=== PATIENT | female | born 1955 | race Asian ===

== ENCOUNTER 2018-09-15 13:50 | Inpatient (IN) | payer OTHER ==
[~2018-09-15] VITALS: Ht 152.4 cm; Wt 45.6 kg
[2018-09-15] MEDS ORDERED: ACET1TAB55 PO (13:56)
[2018-09-15] MEDS ORDERED: NYQU1CAP PO (13:56)
[2018-09-15 16:15] LABS: BASO % 0.2 % (0.0-1.0); HEMATOCRIT 37.5 % (36.0-47.0); HEMOGLOBIN 12.2 g/dl (12.0-15.5); LYMPH # 2.4 10^3/uL (1.5-4.5); LYMPH % 20.1 % (24.0-44.0); MEAN CORPUSCULAR HEMOGLOBIN 29.5 pg (27.0-33.0); MEAN CORPUSCULAR HGB CONC 32.5 g/dl (32.0-36.5); MEAN CORPUSCULAR VOLUME 90.8 fl (80.0-96.0); MONO # 0.8 10^3/uL (0.0-0.8); MONO % 6.9 % (0.0-5.0); NEUTROPHILS # 8.7 10^3/uL (1.8-7.7); NEUTROPHILS % 71.7 % (36.0-66.0); PLATELET COUNT, AUTOMATED 207 10^3/uL (150-450); RED BLOOD COUNT 4.13 10^6/uL (4.00-5.40); WHITE BLOOD COUNT 12.1 10^3/uL (4.0-10.0)
[2018-09-15 16:27] LABS: VENOUS BASE EXCESS -0.8 (-2.0-2.0); VENOUS HCO3 24.3 MEQ/L (23.0-27.0); VENOUS O2 SATURATION 72.9 % (60.0-80.0); VENOUS PARTIAL PRESSURE CO2 41.8 mmHg (38.0-50.0); VENOUS PARTIAL PRESSURE O2 39.1 mmHg (30.0-50.0); VENOUS PH 7.382 UNITS (7.330-7.430); VENOUS STANDARD HCO3 23.3 MEQ/L; VENOUS TOTAL CO2 25.6 MEQ/L (24.0-28.0)
[2018-09-15 16:33] LABS: BLOOD UREA NITROGEN 8 MG/DL (7-18); CALCIUM LEVEL 8.6 MG/DL (8.8-10.2); CARBON DIOXIDE LEVEL 26 MEQ/L (21-32); CHLORIDE LEVEL 104 MEQ/L (98-107); CREATININE FOR GFR 0.55 MG/DL (0.55-1.30); GLOMERULAR FILTRATION RATE > 60.0 (>45); GLUCOSE, FASTING 115 MG/DL (70-100); SODIUM LEVEL 139 MEQ/L (136-145)
[2018-09-15] MEDS ORDERED: NS 1,000 ML IV ONE (16:45)
[2018-09-15] MEDS ORDERED: cefTRIAXone SOD 1 GM in D5W MINI-BAG PLUS 50 ML IV ONE (17:00)
[2018-09-15] MEDS ORDERED: IBUPROFEN 600 MG TAB PO ONE (17:00)
[2018-09-15 17:05] VITALS: O2SAT 98
[2018-09-15] MEDS ORDERED: ACETAMINOPHEN 650 MG SUPP PR PRN (17:15)
[2018-09-15] MEDS ORDERED: DAYQ1LIQ PO (18:02)
--- NOTE | 2018-09-15 18:35 | HPE ---
DATE OF ADMISSION: 09/15/2018 62-year-old female with no significant past medical history presents to the emergency room after finding out at Urgent Care that she was flu B positive and had multifocal pneumonia on chest x-ray. Patient has been feeling weak for the last eight days with subjective feeling of fever, aches and chills, and cough with productive yellow sputum, and shortness of breath on exertion. When she came to the ER her saturation 98% at rest on room air and then dropped to 90% within 10 feet of mobilizing. She was started on IV Rocephin and she will be admitted for further management. PAST MEDICAL HISTORY: No significant past medical history. PAST SURGICAL HISTORY: No significant past surgical history. ALLERGIES: No known drug allergies. FAMILY HISTORY: Noncontributory. SOCIAL HISTORY: Patient denies tobacco, alcohol or illicit drugs. MEDICATIONS: She takes no medications at home. REVIEW OF SYSTEMS: Negative all 10 major systems except what is mentioned in HPI. VITALS: Blood pressure is 132/60, heart rate is 94 and regular. Respiratory rate 20, temperature 100.9, oxygen saturation 99% on room air. Head: Atraumatic. Normocephalic. Neck: Supple. No jugular venous distention (JVD). Lungs: Have bilateral rhonchi. S1, S2 audible. No murmurs appreciated. Abdomen: Soft, positive bowel sounds. No pedal edema. Skin: Intact. Neurological examination: Patient awake, alert and oriented times three. LABS: WBC 12.1, hemoglobin is 12.2, hematocrit 37.5. Platelets are 207,000. Sodium 139, potassium 4.0, chloride 104, CO2 26, anion mychal 9, BUN is 8, creatinine 0.55. Glucose 115, lactic acid 2.6. VBG blood gas was 7.382. IMPRESSION: 1. Influenza B with infection. 2. Multifocal pneumonia/community acquired pneumonia. PLAN: Patient is to be admitted to the med-surg floor. We will keep her on droplet precautions although I think her influenza infection is subsiding and likely has acquired a secondary bacterial infection. Will give the patient IV Rocephin and Zithromax. Lactic acid is elevated likely secondary to dehydration. Will also give her normal saline 125 mL an hour. Will give her Tylenol as needed for fevers and will continue following her care on the med-surg floor. Sputum cultures will be obtained if possible.
[2018-09-15 22:05] VITALS: BP 118/57
[2018-09-15] MEDS: AZITHROMYCIN INJ 500 MG, VIAL MATE ADAPTER 1 EACH in D5W 250 ML IV SCH (22:30)
[2018-09-15] MEDS: NS 1,000 ML IV SCH (22:37)
[2018-09-16] MEDS: ACETAMINOPHEN TAB 650MG DOSE (2X325MG) PO PRN ×2 (04:12→15:55)
[2018-09-16] MEDS: NS 1,000 ML IV SCH (05:07)
[2018-09-16 06:00] VITALS: BP 111/58
[2018-09-16 07:00] LABS: BASO % 0.3 % (0.0-1.0); EOS % 0.1 % (0.0-3.0); HEMATOCRIT 30.9 % (36.0-47.0); LYMPH # 1.6 10^3/uL (1.5-4.5); LYMPH % 17.8 % (24.0-44.0); MEAN CORPUSCULAR HEMOGLOBIN 29.6 pg (27.0-33.0); MEAN CORPUSCULAR HGB CONC 32.7 g/dl (32.0-36.5); MEAN CORPUSCULAR VOLUME 90.6 fl (80.0-96.0); MONO # 0.5 10^3/uL (0.0-0.8); NEUTROPHILS # 6.8 10^3/uL (1.8-7.7); NEUTROPHILS % 75.6 % (36.0-66.0); PLATELET COUNT, AUTOMATED 188 10^3/uL (150-450); RED BLOOD COUNT 3.41 10^6/uL (4.00-5.40)
[2018-09-16 07:04] LABS: HEMOGLOBIN 10.1 g/dl (12.0-15.5)
[2018-09-16 07:24] LABS: BLOOD UREA NITROGEN 6 MG/DL (7-18); CALCIUM LEVEL 8.4 MG/DL (8.8-10.2); CARBON DIOXIDE LEVEL 27 MEQ/L (21-32); CHLORIDE LEVEL 109 MEQ/L (98-107); CREATININE FOR GFR 0.51 MG/DL (0.55-1.30); GLOMERULAR FILTRATION RATE > 60.0 (>45); GLUCOSE, FASTING 106 MG/DL (70-100); POTASSIUM SERUM 4.6 MEQ/L (3.5-5.1); SODIUM LEVEL 142 MEQ/L (136-145)
[2018-09-16] MEDS: cefTRIAXone SOD 1 GM in D5W MINI-BAG PLUS 50 ML IV SCH (08:35)
[2018-09-16] MEDS: guaiFENesin ER 600 MG TAB PO SCH ×2 (09:26→20:53)
--- NOTE | 2018-09-16 15:34 | IPNPDOC ---
Text Note Date of Service The patient was seen on 09/16/18. NOTE Subjective: Patient is a 62-year-old male with no significant past medical history who presented to the ER and after visiting urgent care for complaints of cough and shortness of breath for approximately 7 days. At the urgent care. Patient was found to be positive for influenza and multifocal pneumonia on imaging and was sent in for evaluation at [facility]. Upon ambulation. Patient was found to have a drop in her saturation. Patient has been admitted to hospitalist service for many acquired pneumonia and influenza. Patient was seen and examined at the bedside. Clinically patient notes that her breathing is doing better. She still has a persistent cough. Denies any chest pain or palpitations. Denies nausea, vomiting, abdominal pain, constipation, diarrhea or discomfort with urination Objective: Vitals (See below) General: Lying in bed, no acute distress, comfortable, AAOx3 HEENT: NC, AT CVS: RRR, +S1S2 Lungs: Fair air entry b/l, no significant wheezing, rales or rhonchi are heard upon auscultation Abdomen: Soft, ND, NT Extremities: - Edema, - Calf tenderness Assessment and plan: Shortness of breath / Cough - likely 2/2 Multifocal pneumonia / community acquired pneumonia - Presented to the ER with complaints of shortness of breath and cough - Yesterday patient had a fever of 100.9F - Remains hemodynamically stable, is not requiring any supplemental oxygen - Cytosis and lactic acidosis have resolved - Blood cultures 09/15: Pending - CXR 09/15: Findings compatible with multifocal pneumonia. - c/w Ceftriaxone and Azithromycin (Day #2) and will discontinue IV fluids Influenza - Patient was found to be influenza B positive at urgent care center - She has noted that her symptoms have occurred greater then 8 days - She is no longer a candidate to receive Tamiflu Normocytic anemia - Drop in hemoglobin is likely dilutional in etiology - Will continue to follow DVT prophylaxis - Will start TEDs / Sequentials VS,Fishbone, I+O VS, Fishbone, I+O Laboratory Tests 09/15/18 16:05 Red Blood Count 4.13, Mean Corpuscular Volume 90.8, Mean Corpuscular Hemoglobin 29.5, Mean Corpuscular Hemoglobin Concent 32.5, Red Cell Distribution Width 13.0, Neutrophils (%) (Auto) 71.7 H, Lymphocytes (%) (Auto) 20.1 L, Monocytes (%) (Auto) 6.9 H, Eosinophils (%) (Auto) 0.0, Basophils (%) (Auto) 0.2, Neutrophils # (Auto) 8.7 H, Lymphocytes # (Auto) 2.4, Monocytes # (Auto) 0.8, Eosinophils # (Auto) 0.0, Basophils # (Auto) 0.0, Calcium Level 8.6 L 09/16/18 06:45 Red Blood Count 3.41 L, Mean Corpuscular Volume 90.6, Mean Corpuscular Hemoglobin 29.6, Mean Corpuscular Hemoglobin Concent 32.7, Red Cell Distribution Width 13.0, Neutrophils (%) (Auto) 75.6 H, Lymphocytes (%) (Auto) 17.8 L, Monocytes (%) (Auto) 5.0, Eosinophils (%) (Auto) 0.1, Basophils (%) (Auto) 0.3, Neutrophils # (Auto) 6.8, Lymphocytes # (Auto) 1.6, Monocytes # (Auto) 0.5, Eosinophils # (Auto) 0.0, Basophils # (Auto) 0.0, Calcium Level 8.4 L Vital Signs Date Time Temp Pulse Resp B/P (MAP) Pulse Ox O2 Delivery O2 Flow Rate FiO2 09/16/18 06:00 99.5 83 20 111/58 (75) 93 09/15/18 21:10 Room Air I&O- Last 24 Hours up to 6 AM 09/16/18 06:00 Intake Total 380 ml Output Total 750 ml Balance -370 ml BISHNU SNYDER MD Sep 16, 2018 15:34
[2018-09-16 17:00] VITALS: BP 124/58
[2018-09-16 20:00] VITALS: BP 141/63
[2018-09-16] MEDS: AZITHROMYCIN INJ 500 MG, VIAL MATE ADAPTER 1 EACH in D5W 250 ML IV SCH (20:53)
[2018-09-17 06:00] VITALS: BP 122/64
[2018-09-17] MEDS: ACETAMINOPHEN TAB 650MG DOSE (2X325MG) PO PRN ×2 (06:27→21:42)
[2018-09-17 07:15] LABS: BASO % 0.3 % (0.0-1.0); EOS % 0.3 % (0.0-3.0); HEMATOCRIT 29.8 % (36.0-47.0); LYMPH # 2.2 10^3/uL (1.5-4.5); LYMPH % 24.8 % (24.0-44.0); MEAN CORPUSCULAR HGB CONC 33.6 g/dl (32.0-36.5); MEAN CORPUSCULAR VOLUME 89.5 fl (80.0-96.0); MONO # 0.5 10^3/uL (0.0-0.8); MONO % 6.1 % (0.0-5.0); NEUTROPHILS # 5.8 10^3/uL (1.8-7.7); NEUTROPHILS % 66.5 % (36.0-66.0); PLATELET COUNT, AUTOMATED 234 10^3/uL (150-450); RED BLOOD COUNT 3.33 10^6/uL (4.00-5.40); WHITE BLOOD COUNT 8.7 10^3/uL (4.0-10.0)
[2018-09-17 07:48] LABS: ALBUMIN 2.5 GM/DL (3.2-5.2); ALT/SGPT 86 U/L (12-78); BILIRUBIN,TOTAL 0.5 MG/DL (0.2-1.0); BLOOD UREA NITROGEN 3 MG/DL (7-18); CALCIUM LEVEL 8.2 MG/DL (8.8-10.2); CARBON DIOXIDE LEVEL 27 MEQ/L (21-32); CHLORIDE LEVEL 106 MEQ/L (98-107); CREATININE FOR GFR 0.45 MG/DL (0.55-1.30); GLOMERULAR FILTRATION RATE > 60.0 (>45); GLUCOSE, FASTING 105 MG/DL (70-100); MAGNESIUM LEVEL 2.2 MG/DL (1.8-2.4); POTASSIUM SERUM 3.6 MEQ/L (3.5-5.1); SODIUM LEVEL 140 MEQ/L (136-145); TOTAL PROTEIN 6.5 GM/DL (6.4-8.2)
[2018-09-17] MEDS: guaiFENesin ER 600 MG TAB PO SCH ×2 (09:16→21:41)
[2018-09-17] MEDS: cefTRIAXone SOD 1 GM in D5W MINI-BAG PLUS 50 ML IV SCH (09:17)
[2018-09-17 09:36] LABS: HEPATITIS B SURFACE ANTIGEN NEGATIVE (NEGATIVE)
[2018-09-17 10:03] LABS: HEPATITIS B CORE ANTIBODY IGM NEGATIVE (NEGATIVE); HEPATITIS C VIRUS ABY INDEX < 0.0 INDEX (<0.8)
[2018-09-17 10:05] LABS: HEPATITIS A ANTIBODY IGM NEGATIVE (NEGATIVE)
[2018-09-17 14:00] VITALS: BP 138/68
--- NOTE | 2018-09-17 15:04 | REP ---
Clinical: Elevated liver function tests Technique: Ragland scale ultrasound using curved array transducer. Findings: The liver and pancreas are normal in contour, size, and echogenicity without focal hepatic or pancreatic lesions identified. The gallbladder is normal without gallstones, wall thickening or pericholecystic fluid. No biliary ductal dilatation is appreciated, and the common bile duct measures 5.1 mm diameter. The right kidney is normal in reniform shape without hydronephrosis and measures 9.6 x 4.9 x 3.4 cm. No ascites. Visualized portions of the abdominal aorta normal. Impression: Normal right upper quadrant and gallbladder abdominal ultrasound. Electronically Signed by Winston Batista MD 09/17/2018 02:55 P
--- NOTE | 2018-09-17 15:48 | IPNPDOC ---
Text Note Date of Service The patient was seen on 09/17/18. NOTE Subjective: Patient is a 62-year-old male with no significant past medical history who presented to the ER and after visiting urgent care for complaints of cough and shortness of breath for approximately 7 days. At the urgent care. Patient was found to be positive for influenza and multifocal pneumonia on imaging and was sent in for evaluation at [facility]. Upon ambulation. Patient was found to have a drop in her saturation. Patient has been admitted to hospitalist service for many acquired pneumonia and influenza. Patient was seen and examined at the bedside. . Currently, patient reports that her breathing is doing significantly better. They deny any chest pain, palpitations or significant shortness of breath. They do report a cough on deep inspiration. They deny abdominal pain, nausea, vomiting, constipation, diarrhea or urinary discomfort. Objective: Vitals (See below) General: Lying in bed, no acute distress, comfortable, AAOx3 HEENT: NC, AT CVS: RRR, +S1S2 Lungs: Air entry is fair bilaterally without evidence of rhonchi, rales or wheezing Abdomen: Abdomen again is soft, nondistended, without tenderness Extremities: No evidence of lower extremity edema, - Calf tenderness Assessment and plan: Shortness of breath / Cough - likely 2/2 Multifocal pneumonia / community acqui red pneumonia / possibly superinfection given recent Influenza - Presented to the ER with complaints of shortness of breath and cough - Yesterday patient had a fever of 100.9F; has remained afebrile over last 24 hours - Remains hemodynamically stable, is not requiring any supplemental oxygen - Leukocytosis and lactic acidosis have resolved - Blood cultures 09/15: No growth at 24 hours - CXR 09/15: Findings compatible with multifocal pneumonia. - c/w Ceftriaxone and Azithromycin (Day #3); s/p IV fluids Influenza - Patient was found to be influenza B positive at urgent care center - She has noted that her symptoms have occurred greater then 8 days - She is no longer a candidate to receive Tamiflu Elevated Liver enzymes - possibly 2/2 medications, possibly 2/2 hepatitis - Will check hepatitis profile - Will check US abdomen - Will follow transaminase counts Normocytic anemia - Drop in hemoglobin is likely dilutional in etiology - Will continue to follow DVT prophylaxis - c/w TEDs / Sequentials VS,Fishbone, I+O VS, Fishbone, I+O Laboratory Tests 09/17/18 06:49 Red Blood Count 3.33 L, Mean Corpuscular Volume 89.5, Mean Corpuscular He moglobin 30.0, Mean Corpuscular Hemoglobin Concent 33.6, Red Cell Distribution Width 12.9, Neutrophils (%) (Auto) 66.5 H, Lymphocytes (%) (Auto) 24.8, Monocytes (%) (Auto) 6.1 H, Eosinophils (%) (Auto) 0.3, Basophils (%) (Auto) 0.3, Neutrophils # (Auto) 5.8, Lymphocytes # (Auto) 2.2, Monocytes # (Auto) 0.5, Eosinophils # (Auto) 0.0, Basophils # (Auto) 0.0, Calcium Level 8.2 L, Aspartate Amino Transf (AST/SGOT) 62 H, Alanine Aminotransferase (ALT/SGPT) 86 H, Alkaline Phosphatase 185 H, Total Bilirubin 0.5, Total Protein 6.5, Albumin 2.5 L Vital Signs Date Time Temp Pulse Resp B/P (MAP) Pulse Ox O2 Delivery O2 Flow Rate FiO2 09/17/18 14:00 98.4 83 16 138/68 (91) 97 09/15/18 21:10 Room Air I&O- Last 24 Hours up to 6 AM 09/17/18 06:00 Intake Total 2090 ml Output Total 0 ml Balance 2090 ml BISHNU SNYDER MD Sep 17, 2018 15:48
[2018-09-17 21:30] VITALS: BP 142/62
[2018-09-17] MEDS: AZITHROMYCIN INJ 500 MG, VIAL MATE ADAPTER 1 EACH in D5W 250 ML IV SCH (21:42)
[2018-09-18 06:00] VITALS: BP 129/62
[2018-09-18 06:52] LABS: BASO % 0.3 % (0.0-1.0); EOS # 0.1 10^3/uL (0.0-0.50); EOS % 0.9 % (0.0-3.0); HEMATOCRIT 32.6 % (36.0-47.0); HEMOGLOBIN 10.9 g/dl (12.0-15.5); LYMPH # 2.1 10^3/uL (1.5-4.5); LYMPH % 28.5 % (24.0-44.0); MEAN CORPUSCULAR HEMOGLOBIN 29.8 pg (27.0-33.0); MEAN CORPUSCULAR HGB CONC 33.4 g/dl (32.0-36.5); MEAN CORPUSCULAR VOLUME 89.1 fl (80.0-96.0); MONO # 0.6 10^3/uL (0.0-0.8); MONO % 7.5 % (0.0-5.0); NEUTROPHILS # 4.5 10^3/uL (1.8-7.7); NEUTROPHILS % 61.4 % (36.0-66.0); PLATELET COUNT, AUTOMATED 294 10^3/uL (150-450); RED BLOOD COUNT 3.66 10^6/uL (4.00-5.40); WHITE BLOOD COUNT 7.4 10^3/uL (4.0-10.0)
[2018-09-18 07:59] LABS: ALBUMIN 2.7 GM/DL (3.2-5.2); ALT/SGPT 70 U/L (12-78); BILIRUBIN,TOTAL 0.4 MG/DL (0.2-1.0); BLOOD UREA NITROGEN 5 MG/DL (7-18); CALCIUM LEVEL 8.5 MG/DL (8.8-10.2); CARBON DIOXIDE LEVEL 27 MEQ/L (21-32); CHLORIDE LEVEL 104 MEQ/L (98-107); GLOMERULAR FILTRATION RATE > 60.0 (>45); GLUCOSE, FASTING 101 MG/DL (70-100); MAGNESIUM LEVEL 2.7 MG/DL (1.8-2.4); POTASSIUM SERUM 3.9 MEQ/L (3.5-5.1); SODIUM LEVEL 139 MEQ/L (136-145); TOTAL PROTEIN 7.1 GM/DL (6.4-8.2)
[2018-09-18] MEDS ORDERED: AZIT-12 PO (08:32)
[2018-09-18] MEDS ORDERED: CEFD1CAP8 PO (08:32)
[2018-09-18] MEDS: guaiFENesin ER 600 MG TAB PO SCH (09:37)
[2018-09-18] MEDS: cefTRIAXone SOD 1 GM in D5W MINI-BAG PLUS 50 ML IV SCH (09:37)
--- NOTE | 2018-09-18 15:00 | DS.PDOC ---
Discharge Summary General Date of Admission Sep 15, 2018 at 17:15 Date of Discharge 09/18/2018 Discharge Summary PROCEDURES PERFORMED DURING STAY: [None]. ADMITTING DIAGNOSES / DISCHARGE DIAGNOSES: Shortness of breath / Cough - likely 2/2 Multifocal pneumonia / community acquired pneumonia / possibly superinfection given recent Influenza Influenza s/p Elevated Liver enzymes - possibly 2/2 medications Normocytic anemia DVT prophylaxis COMPLICATIONS/CHIEF COMPLAINT: Shortness of breath / Cough HISTORY OF PRESENT ILLNESS: Patient is a 62-year-old male with no significant past medical history who pr esented to the ER and after visiting urgent care for complaints of cough and shortness of breath for approximately 7 days. At the urgent care. Patient was found to be positive for influenza and multifocal pneumonia on imaging and was sent in for evaluation at [facility]. Upon ambulation. Patient was found to have a drop in her saturation. Patient has been admitted to hospitalist service for many acquired pneumonia and influenza. HOSPITAL COURSE: Shortness of breath / Cough - likely 2/2 Multifocal pneumonia / community acquired pneumonia / possibly superinfection given recent Influenza - Clinically patient has noted that she's feeling significantly better; - Yesterday patient had a fever of 100.9F; has remained afebrile over last 24 hours - Remains hemodynamically stable, is not requiring any supplemental oxygen - Leukocytosis and lactic acidosis have resolved - Blood cultures 09/15: No growth at 48 hours - CXR 09/15: Findings compatible with multifocal pneumonia. - s/p IV fluids - c/w Ceftriaxone and Azithromycin (Day #4); will complete Cefdinir and Azithromycin as outpatient Influenza - Patient was found to be influenza B positive at urgent care center - She has noted that her symptoms have occurred greater then 8 days - She is no longer a candidate to receive Tamiflu s/p Elevated Liver enzymes - possibly 2/2 medications - Counts have normalized - Hepatitis profile negative - US abdomen 09/17: Normal right upper quadrant and gallbladder abdominal ultrasound. Normocytic anemia - Drop in hemoglobin is likely dilutional in etiology - Will continue to follow DVT prophylaxis - c/w TEDs / Sequentials DISCHARGE MEDICATIONS: Please see below. ALLERGIES: Please see below. PHYSICAL EXAMINATION ON DISCHARGE: Vitals (See below) General: Lying in bed, no acute distress, comfortable, AAOx3 HEENT: NC, AT CVS: RRR, +S1S2 Lungs: Air entry is fair bilaterally; no appreciable wheezing, rales or rhonchi Abdomen: Abdomen again is soft, remains nondistended, no tenderness Extremities: LE are without edema, - Calf tenderness LABORATORY DATA: Please see below. ACTIVITY: [As tolerated]. DISCHARGE PLAN: Follow up with PCP within 7 days Remain compliant with treatment plan and medications Return to the ER if you experience any problems DISPOSITION: Home, Self-Care. DISCHARGE CONDITION: [Stable]. TIME SPENT ON DISCHARGE: Greater than [35] minutes. Vital Signs/I&Os Vital Signs Date Time Temp Pulse Resp B/P (MAP) Pulse Ox O2 Delivery O2 Flow Rate FiO2 09/18/18 06:00 98.8 72 16 129/62 (84) 98 09/15/18 21:10 Room Air I&O- Last 24 Hours up to 6 AM 09/18/18 06:00 Intake Total 1815 ml Balance 1815 ml Laboratory Data Labs 24H Laboratory Tests 2 09/18/18 06:40: Immature Granulocyte % (Auto) 1.4, White Blood Count 7.4, Red Blood Count 3.66L, Hemoglobin 10.9L, Hematocrit 32.6L, Mean Corpuscular Volume 89.1, Mean Corpuscular Hemoglobin 29.8, Mean Corpuscular Hemoglobin Concent 33.4, Red Cell Distribution Width 12.7, Platelet Count 294, Neutrophils (%) (Auto) 61.4, Lymphocytes (%) (Auto) 28.5, Monocytes (%) (Auto) 7.5H, Eosinophils (%) (Auto) 0.9, Basophils (%) (Auto) 0.3, Neutrophils # (Auto) 4.5, Lymphocytes # (Auto) 2.1, Monocytes # (Auto) 0.6, Eosinophils # (Auto) 0.1, Basophils # (Auto) 0.0, Nucleated Red Blood Cells % (auto) 0.0, Anion Gap 8, Glomerular Filtration Rate > 60.0, Blood Urea Nitrogen 5#L, Creatinine 0.50L, Sodium Level 139, Potassium Level 3.9, Chloride Level 104, Carbon Dioxide Level 27, Calcium Level 8.5L, Aspartate Amino Transf (AST/SGOT) 33, Alanine Aminotransferase (ALT/SGPT) 70, Alkaline Phosphatase 186H, Total Bilirubin 0.4, Total Protein 7.1, Albumin 2.7L, Magnesium Level 2.7H, Albumin/Globulin Ratio 0.61L CBC/BMP Laboratory Tests 09/18/18 06:40 Red Blood Count 3.66 L, Mean Corpuscular Volume 89.1, Mean Corpuscular Hemoglobin 29.8, Mean Corpuscular Hemoglobin Concent 33.4, Red Cell Distribution Width 12.7, Neutrophils (%) (Auto) 61.4, Lymphocytes (%) (Auto) 28.5, Monocytes (%) (Auto) 7.5 H, Eosinophils (%) (Auto) 0.9, Basophils (%) (Auto) 0.3, Neutrophils # (Auto) 4.5, Lymphocytes # (Auto) 2.1, Monocytes # (Auto) 0.6, Eosinophils # (Auto) 0.1, Basophils # (Auto) 0.0, Calcium Level 8.5 L, Aspartate Amino Transf (AST/SGOT) 33, Alanine Aminotransferase (ALT/SGPT) 70, Alkaline Phosphatase 186 H, Total Bilirubin 0.4, Total Protein 7.1, Albumin 2.7 L Microbiology Microbiology 09/15/18 Blood Culture - Preliminary, Resulted No Growth after 48 hours. All Specime... 09/15/18 Blood Culture - Preliminary, Resulted No Growth after 48 hours. All Specime... Discharge Medications Scheduled Azithromycin (Azithromycin) 250 Mg Tab, 250 MG PO ASDIRECTED Cefdinir (Cefdinir) 300 Mg Cap, 1 CAP PO BID Scheduled PRN (Nyquil Severe Cold/Flu 5-6.25-10-325 mg) 1 Cap Cap, 1 CAP PO QHS PRN for FEVER, (Reported) (Dayquil Severe + Vapo... 4-56-172-325 mg/15Ml) 1 Liq Liq, 1 LIQ PO DAILY PRN for COUGH, (Reported) Acetaminophen (Acetaminophen) 325 Mg Tab, 650 MG PO Q4H PRN for PAIN / FEVER, (Reported) Allergies Coded Allergies: No Known Allergies (Unverified , 09/15/18) BISHNU SNYDER MD Sep 18, 2018 15:00
== END 2018-09-18 10:48 | disposition home or self-care (01) | DRG 195 ==
LOC: M ED 13:50 → M ED INP 17:15 → M MS4PR 22:04
PROVIDERS: ADMIT Internal Medicine; ATTEND Internal Medicine
DX: J10.00 Influenza due to other identified influenza virus with unspecified type of pneumonia (principal); J18.9 Pneumonia, unspecified organism; D64.9 Anemia, unspecified

== ENCOUNTER → 2018-09-15 | Outpatient (CLI) | payer OTHER ==
[~2018-09-15] MED LIST: ACET1TAB55 PO; AZIT-12 PO; CEFD1CAP8 PO; DAYQ1LIQ PO; NYQU1CAP PO
--- NOTE | 2018-09-15 13:09 | REP ---
Clinical: Cough and fever. Influenza B. Technique: PA and lateral. Comparison: None. Findings: Mediastinum and cardiac silhouette are normal. Diffuse coarsened interstitial markings along with ill-defined opacities in the right upper lung zone, left perihilar region, and right middle lobe consistent with a history of pneumonia. No effusion. No pneumothorax. Impression: Findings compatible with multifocal pneumonia. Electronically Signed by Winston Batista MD 09/15/2018 12:32 P
== END ==
LOC: M LRY 11:56
PROVIDERS: ATTEND Physician Assistant
DX: J10.1 Influenza due to other identified influenza virus with other respiratory manifestations (principal); R50.9 Fever, unspecified; R05 Cough

== ENCOUNTER → 2018-09-15 | Outpatient (REF) | payer OTHER ==
[~2018-09-15] MED LIST changes: -AZIT-12 PO; -CEFD1CAP8 PO
== END ==
LOC: M SFHCLERA 11:28
PROVIDERS: ATTEND Physician Assistant
DX: R50.9 Fever, unspecified (principal)